=== PATIENT | female | born 1975 | race Caucasian/White ===

== ENCOUNTER 2017-08-04 15:33 | Emergency (ER) | END 2017-08-04 17:29 | disposition home or self-care (01) ==

== ENCOUNTER 2017-09-01 16:10 | Emergency (ER) | END 2017-09-01 19:53 | disposition left against medical advice (07) ==

== ENCOUNTER 2017-09-02 13:01 | Emergency (ER) | END 2017-09-02 14:52 | disposition home or self-care (01) ==

== ENCOUNTER 2018-01-02 08:26 | Emergency (ER) | END 2018-01-02 10:58 | disposition home or self-care (01) ==